=== PATIENT | male | born 2000 | race Caucasian/White ===

== ENCOUNTER 2023-04-05 16:09 | Emergency (ER) | payer SELFPAY ==
--- NOTE | ~2023-04-05 | XR_ITS ---
Clinical Indication: Cough PA and lateral views of the chest: Comparison: None Findings: The lungs are clear, without evidence of focal consolidation or pleural effusion. Cardiome diastinal silhouette is within normal limits. Bones and soft tissues are unremarkable. Impression: Normal chest. Reviewed, dictated and finalized at location . Impression: Normal chest.
[2023-04-05 16:12] VITALS: BP 145/76; PULSE 86; RESP 16; TEMP 36.6; O2SAT 98
--- NOTE | 2023-04-05 18:10 | ED.FEVER ---
HPI - Fever General Chief Complaint: Fever Stated Complaint: malaise Time Seen by Provider: 04/05/23 17:04 History of Present Illness HPI Narrative: Patient is a 23-year-old male presenting with fever and malaise. Patient states that for the last couple of days he has been feeling generally unwell. States that he has had some intermittent abdominal cramping as well as diarrhea. States that his sinuses are very congested and his throat hurts if he tries to speak to loudly. States that he has been feeling somewhat short of breath when he gets up and walks. Denies headache, chest pain, vomiting, nausea, dysuria, leg swelling, rashes. States that he did have a fever slightly above 100 degrees yesterday. Related Data Allergies Allergy/AdvReac Type Severity Reaction Status Date / Time No Known Allergies Allergy Verified 04/05/23 17:19 Review of Systems Review of Systems: All systems reviewed & are unremarkable except as noted in HPI and below Exam Narrative: GENERAL: Well-appearing, well-nourished, and in no acute distress. HEAD: Normocephalic, atraumatic. EYES: PERRLA and EOMI. mildly injected right conjunctiva ENT: Nares clear, no rhinorrhea or epistaxis. Mucous membranes moist. No tonsillar swelling, erythema, exudates NECK: Supple. CHEST: Clear to auscultation. No respiratory distress. HEART: Regular rate and rhythm. No murmur heard. Normal peripheral pulses. ABDOMEN: Soft, nontender, nondistended EXTREMITIES: Normal range of motion. No edema. SKIN: Warm, dry, no rash. NEURO: No focal deficits. Alert and oriented x3. PSYCH: Normal mood and affect. Course Vital Signs Vital signs: Vital Signs Temperature 97.9 F 04/05/23 16:12 Pulse Rate 86 04/05/23 16:12 Respiratory Rate 16 04/05/23 16:12 Blood Pressure 145/76 H 04/05/23 16:12 Pulse Oximetry 98 04/05/23 16:12 Oxygen Delivery Room Air 04/05/23 16:12 Temperature 98.4 F 04/05/23 19:26 Pulse Rate 80 04/05/23 19:58 Respiratory Rate 17 04/05/23 19:58 Blood Pressure 135/90 04/05/23 19:58 Pulse Oximetry 97 04/05/23 19:58 Oxygen Delivery Room Air 04/05/23 16:12 MDM - Fever MDM Narrative Medical decision making narrative: Patient is a 23-year-old male presenting with fevers and general malaise. Patient is afebrile here. Vitals are within normal limits. Patient is well-appearing and in no acute distress. Exam is remarkable for above. Will check respiratory virus panel and chest x-ray. Chest x-ray shows no acute abnormalities. Respiratory panel is negative. On reevaluation, the patient is resting comfortably. His vitals remain normal. I suspect he has some sort of viral infection. Advised Tylenol and ibuprofen for fever and pain control. Advised PCP follow-up. Appropriate return precautions given. Patient voiced understanding and is agreeable with plan. Discharged in stable condition. Differential Diagnosis Differential diagnosis: Likely community acquired pneumonia, viral infection and influenza Medical Records Attestation: I reviewed the patient's medical records. Lab Data Attestation: I reviewed the patient's lab results. Labs: Lab Results 04/05/23 Range/Units 18:49 Influenza A (RT-PCR) Negative (Negative) Influenza B (RT-PCR) Negative (Negative) RSV (RT-PCR) Negative (Negative) SARS-CoV-2 RNA (RT-PCR) Negative (Negative) Imaging Data Radiologist's impression: ITS Impressions Chest X-Ray 04/05/23 18:36 Impression: Normal chest. Critical Care Time Critical Care Time Critical Care Time: No Discharge Plan Discharge Clinical Impression: Viral syndrome Patient Disposition: Home, Self-Care Condition: Stable Instructions: Antibiotic Form, Viral Syndrome (ED) Additional Instructions: Please use Tylenol and ibuprofen for fever and pain control. Please follow-up with primary care. If you develop chest pain, difficulty breathing, vomit
[2023-04-05] MEDS: IBUPROFEN 400 MG TABLET 800 MG PO (18:46)
[2023-04-05] MEDS: ACETAMINOPHEN 500 MG TABLET 1000 MG PO (18:47)
[2023-04-05 19:26] VITALS: BP 116/78; PULSE 88; RESP 16; TEMP 36.9; O2SAT 98
[2023-04-05 19:29] LABS: Influenza A QL RT-PCR Negative (Negative); Influenza B QL RT-PCR Negative (Negative); RSV RNA, RT-PCR Negative (Negative); SARS-CoV-2 RNA PCR Negative (Negative)
[2023-04-05 19:58] VITALS: BP 135/90; PULSE 80; RESP 17; O2SAT 97
== END 2023-04-05 20:00 | disposition home or self-care (01) ==
PROVIDERS: Emergency Provider Emergency Medicine
DX: B34.9 Viral infection, unspecified (principal); Z20.822 Contact with and (suspected) exposure to COVID-19
CPT/HCPCS: 71046; 87637; 99283; A9270